=== PATIENT | female | born 1940 | race Caucasian/White ===

== ENCOUNTER 2018-06-04 12:36 | Emergency (ER) | payer MEDICARE ==
--- NOTE | 2018-06-04 12:59 | ED ---
Skin Complaint - HPI Summary HPI Summary: Patient is a 78-year-old female who presents emergency department for evaluation of a wound that occurred just prior to arrival. Patient states she was shaving her legs when she accidentally over a varicose vein to her left lower leg. She states wound was bleeding profusely. She placed a towel and pressure and called 911. Patient is on Coumadin. She states she had her level checked last week it was 2.2. Since in the ER bleeding has stopped. Patient otherwise denies any complaints. Symptoms are mild in severity. No current modifying factors. - History of Current Complaint Chief Complaint: EDExtremityLower Time Seen by Provider: 06/04/18 12:44 Stated Complaint: LEFT LEG INJURY Hx Obtained From: Patient Pain Intensity: 0 - Allergy/Home Medications Allergies/Adverse Reactions: Allergies Allergy/AdvReac Type Severity Reaction Status Date / Time Adhesive Tape Allergy Rash And Verified 04/05/13 12:43 Itching MS Amoxicillin Allergy Rash Verified 04/05/13 12:43 [From Augmentin] MS Clarithromycin Allergy Rash Verified 04/05/13 12:43 [From Biaxin] MS Clavulanic Acid Allergy Rash Verified 04/05/13 12:43 [From Augmentin] ENVIRONMENTAL Allergy SCRATCHY Uncoded 04/05/13 12:43 THROAT PMH/Surg Hx/FS Hx/Imm Hx Previously Healthy: Yes Endocrine/Hematology History: Reports: Hx Thyroid Disease - ondaily meds, Hx Anemia - spleenectomy 1969 Cardiovascular History: Reports: Hx Coronary Artery Disease, Hx Hypertension, Hx 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 1970s SPLEENECTOMY & GALL BLADDER [place]. 1981 LEFT KIDNEY (DONATED TO BROTHER) [place]. 1986 TOTAL HYSTERECTOMY [facility] [place]. 2008 LEFT BREAST CANCER [place]. 2010 OPEN HEART, [facility] [place] Hx Anesthesia Reactions: No Infectious Disease History: No Infectious Disease History: Denies: Traveled Outside the [place] in Last 30 Days - Family History Known Family History: Positive: Non-Contributory - Social History Occupation: Retired Lives: With Family Alcohol Use: None Substance Use Type: Reports: None Smoking Status (MU): Never Smoked Tobacco Review of Systems Positive: Other - wound LLE All Other Systems Reviewed And Are Negative: Yes Physical Exam Triage Information Reviewed: Yes Vital Signs On Initial Exam: Initial Vitals Temp Pulse Resp BP Pulse Ox 97.8 F 61 15 115/84 100 06/04/18 12:41 06/04/18 12:41 06/04/18 12:41 06/04/18 12:41 06/04/18 12:41 Vital Signs Reviewed: Yes Appearance: Positive: Well-Appearing - Pt. lying in bed in NAD. Pleasant. Skin: Positive: Warm, Dry Head/Face: Positive: Normal Head/Face Inspection Eyes: Positive: Normal, EOMI, Conjunctiva Clear Neck: Positive: Supple Musculoskeletal: Positive: Other - Pinpoint puncture wound noted to lateral left LE over a varicose vein. No bleeding at this time. Neurological: Positive: Normal, CN Intact II-III Psychiatric: Positive: Affect/Mood Appropriate Diagnostics - Vital Signs Vital Signs Temp Pulse Resp BP Pulse Ox 06/04/18 12:41 97.8 F 61 15 115/84 100 - Laboratory Lab Statement: Any lab studies that have been ordered have been reviewed, and results considered in the medical decision making process. Course/Dx - Course Course Of Treatment: Pt. presenting for evaluation of cutting leg while shaving. Bleeding as stopped on its own after pressure. Dressing placed. Advised to elevate leg and apply ice. To return to ER if sxs change or worsen. - Diagnoses Provider Diagnoses: Abrasion Discharge - Sign-Out/Discharge Documenting (check all that apply): Patient Departure Patient Received Moderate/Deep Sedation with Procedure: No - Discharge Plan Condition: Improved Disposition: HOME Patient Education Materials: Acute Wound Care (ED) Referrals: Rigoberto Vaughan MD [Primary Care Provider] - Additional Instructions: Follow up with PCP if needed Keep wound clean and dry Leave dressing on until tomorrow Elevate leg and apply cool compress Apply direct pressure and elevate leg if bleeding returns Return to ER if symptoms change or worsen - Billing Disposition and Condition Condition: IMPROVED Disposition: Home
[2018-06-04 13:35] VITALS: BP 101/66
== END 2018-06-04 13:34 | disposition home or self-care (01) ==
LOC: ED 12:36
DX: S80.812A Abrasion, left lower leg, initial encounter (principal); W26.8XXA Contact with other sharp object(s), not elsewhere classified, initial encounter; Y93.E8 Activity, other personal hygiene; Y92.9 Unspecified place or not applicable; E07.9 Disorder of thyroid, unspecified; I25.10 Atherosclerotic heart disease of native coronary artery without angina pectoris; I10 Essential (primary) hypertension; Z79.01 Long term (current) use of anticoagulants; Z95.2 Presence of prosthetic heart valve; Z88.1 Allergy status to other antibiotic agents; Z88.0 Allergy status to penicillin; Z91.048 Other nonmedicinal substance allergy status
CPT/HCPCS: 99282

== ENCOUNTER 2018-11-25 08:10 | Observation (INO) | payer MEDICARE ==
[2018-11-25] MEDS ORDERED: Clindamycin 900 MG/D5W BAG(*) 900 MG/50 ML BAG IVPB ONE (09:00)
[2018-11-25] MEDS ORDERED: Midazolam* 1 MG/ML 5 ML VIAL (5 MG) ONE ×2 (09:25→10:09)
[2018-11-25] MEDS ORDERED: Naloxone* 0.4 MG/ML 1 ML VIAL ONE (09:25)
[2018-11-25] MEDS ORDERED: fentaNYL* 50 MCG/ML 2 ML VIAL (100 MCG VIAL) ONE (09:25)
[2018-11-25] MEDS ORDERED: Flumazenil* 0.1 MG/ML 5 ML MDV ONE (09:25)
[2018-11-25] MEDS ORDERED: Lidocaine 1% INJ* 10 MG/ML 30 ML SDV ONE ×2 (09:25→10:28)
[2018-11-25] MEDS ORDERED: Iohexol 300* (CONTRAST) 10 ML SDV ONE ×3 (09:26→10:37)
[2018-11-25 09:37] LABS: INR 1.27 (0.82-1.09)
[2018-11-25] MEDS ORDERED: Atenolol TAB* 25 MG PO SCH (12:00)
[2018-11-25] MEDS: Potassium Chlor TAB* 20 MEQ TAB.ER PO SCH ×2 (13:44→20:08)
[2018-11-25] MEDS: Acetaminophen TAB* 325 MG PO PRN ×2 (14:37→20:09)
[2018-11-25] MEDS: Clindamycin 300 MG IVPREMIX(* 300 MG/50 ML SDV IV SCH ×2 (14:39→20:11)
[2018-11-25] MEDS: Atenolol TAB* 50 MG PO SCH (19:20)
[2018-11-25] MEDS: Furosemide TAB* 40 MG PO SCH (19:20)
[2018-11-25] MEDS: Diltiazem TAB* 60 MG PO SCH (20:08)
--- NOTE | 2018-11-25 21:16 | OP ---
CC: Dr. Duke * DATE OF OPERATION: 11/25/18 - ROOM #453 DATE OF : 42 SURGEON: Michelle Anna MD. ANESTHESIA: MAC. PRE-OP DIAGNOSIS: Atrial fibrillation with tachybrady syndrome. POST-OP DIAGNOSIS: Atrial fibrillation with tachybrady syndrome. OPERATIVE PROCEDURE: Pacemaker implantation, single chamber. ESTIMATED BLOOD LOSS: 20 cc. DESCRIPTION OF PROCEDURE: The indications, risks, and benefits of the procedure were discussed with the patient in the presence of her family in the office and then again this morning with her son and she was amenable to proceeding. The patient is right handed, and the left subclavian fossa was prepped and draped in the usual sterile fashion. A time-out was called. Following this, the patient received 10 cc of radiopaque dye in the left upper extremity; however, it extravasated into the left lower arm. A new IV was placed. An additional 10 cc of radiopaque dye was injected in the left upper extremity outlining the left axillary and left subclavian vein. Following this, 1% lidocaine was infused in the tissue over the vein and following this, using a 10 blade knife, a 2.5 cm incision was made in the left subclavian fossa, and using Bovie and blunt dissection, it was extended to the level of the pectoralis muscle. Additional lidocaine was infused inferiorly medially and using blunt dissection a pocket was fashioned. Using modified Seldinger technique and under fluoroscopic guidance, the left subclavian vein was cannulated and a guidewire inserted. It had trouble advancing, so we placed the dilator over the guidewire and the guidewire then easily passed down the superior vena cava into the heart, but was more rightward than was typical. We verified that we were in the blood vessel by removing the guidewire and with a syringe removing blood. We then replaced the guidewire, again it was difficult to advance fully and a full introducer was placed over the guidewire. Lead was placed through the introducer into the inferior vena cava. The lead was then advanced into the right ventricle, it took many tries that she has significant tricuspid insufficiency and it took several tries to get the lead in position and actively fix in place securely. Once in place in the mid septum, pacing and sensing thresholds were checked and found to be adequate. The lead was then sutured to the pocket using 0 silk suture, three sutures. Prior to this, there was a lot of back bleeding from the stick site. Once the lead was stitched to the pocket, the pocket was copiously irrigated. The lead was then attached to the generator, the generator was placed into the pocket with Surgicel above and below. The pocket was then closed with three layers of sutures, one layer of interrupted 2-0, one layer of running 2-0, and one layer of 4-0 running, followed by rick and external dressing. FINDINGS: The system is a single-chamber MRI compatible Medtronic system. The device is a Medtronic model W3SR01, serial number [id number]. The lead is a Medtronic model 5076-58, serial number [id number]. R-waves were sensed at 3.9 mV. The ventricular lead impendence was 590 ohms with the RV pacing threshold of 0.7 volts at 0.5 msec. From the pocket, the lead impedance was 570 ohms, R-waves sensed at 4.9 mV and a ventricular pacing threshold of 0.5 volts at 0.4 msec. The patient's total anesthesia is documented separately. At the time of transfer to the floor, the patient was talking and hemodynamically stable. Complications included more than usual bleeding due to back bleeding and extravasation of IV contrast dye into the left forearm. [id number]/[facility] #: [id number] JAMES
[2018-11-26] MEDS: Clindamycin 300 MG IVPREMIX(* 300 MG/50 ML SDV IV SCH ×2 (02:18→09:58)
[2018-11-26] MEDS ORDERED: Levothyroxine TAB* 150 MCG TAB PO SCH (06:00)
[2018-11-26 07:18] LABS: Hematocrit 40 % (35-47); Hemoglobin 13.9 g/dL (12.0-16.0); Mean Corpuscular HGB Conc 35 g/dL (31-36); Mean Corpuscular Hemoglobin 32 pg (27-31); Mean Corpuscular Volume 91 fL (80-97); Mean Platelet Volume 8.2 fL (7.4-10.4); Platelet Count 283 10^3/uL (150-450); Red Blood Count 4.38 10^6 /uL (3.70-4.87); Red Cell Distribution Width 14 % (10-15); White Blood Count 11.4 10^3/uL (3.5-10.8)
[2018-11-26 07:36] LABS: BUN/Creatinine Ratio 21.1 (8-20); Calcium 8.9 mg/dL (8.6-10.3); EGFR African American 89.3 (>60); EGFR Non-African American 73.8 (>60)
[2018-11-26 08:49] LABS: ABS Basophils 0.1 10^3/ul (0-0.2); ABS Eosinophils 0.4 10^3/ul (0-0.6); ABS Lymphocytes 1.6 10^3/ul (1.0-4.8); ABS Neutrophils 7.2 10^3/ul (1.5-7.7); Eosinophil % 3.5 %; Lymphocyte % 14.3 %; Nucleated Red Blood Cells % 0.1
[2018-11-26] MEDS ORDERED: Atenolol TAB* 50 MG PO SCH (09:00)
[2018-11-26] MEDS ORDERED: Doxazosin TAB* 2 MG PO SCH (09:00)
[2018-11-26] MEDS ORDERED: Furosemide TAB* 40 MG PO SCH (09:00)
[2018-11-26] MEDS: Diltiazem TAB* 60 MG PO SCH (09:57)
[2018-11-26] MEDS: Atenolol TAB* 50 MG PO SCH (09:57)
[2018-11-26] MEDS: Potassium Chlor TAB* 20 MEQ TAB.ER PO SCH (09:57)
[2018-11-26] MEDS: Furosemide TAB* 40 MG PO SCH (09:58)
[2018-11-26 12:22] VITALS: BP 124/88
--- NOTE | 2018-11-26 12:59 | DS ---
CC: Dr. Duke; Dr. Rigoberto Vaughan * DISCHARGE SUMMARY: DATE OF ADMISSION: 11/25/18 DATE OF DISCHARGE: 11/26/18 HISTORY OF PRESENT ILLNESS AND HOSPITAL COURSE: Mrs. Medina is a very nice 78- year- old patient of Dr. Duke's with chronic atrial fibrillation. She has had Holter monitor evidence of tachybrady syndrome. The patient was admitted for elective single-chamber pacemaker implantation. The patient underwent a single chamber pacer implantation yesterday, 11/25/18, complicated by some back bleeding and some difficulty with lead positioning due to tricuspid insufficiency. Today, the day of discharge, the patient is clinically healing well and in fact , she said she feels much better than prior to pacemaker implantation. She said she feels calmer, a little more energy, and she says her sons says her color is better. PAST MEDICAL HISTORY: The patient has a past medical history of: 1. Chronic AFib. 2. Hypertension. 3. Obstructive sleep apnea. 4. Obesity. 5. Aortic valve replacement, complicated by Staph bacteremia in 2010. 6. Breast cancer. 7. Congenital spherocytic hemolytic anemia. 8. Hypothyroidism. PAST SURGICAL HISTORY: Includes: 1. Mastectomy. 2. Splenectomy. 3. Appendectomy. 4. Nephrectomy (organ donor for brother). 5. Hysterectomy. 6. Cholecystectomy. 7. . 8. Knee arthroplasty. 9. Aortic valve replacement, tissue. OUTPATIENT MEDICATIONS: Included Coumadin, Cardura 2 mg a day, atenolol 25 mg a day, B12, levothyroxine 50 mcg a day, Lasix 40 mg a day, potassium 60 mEq a day, calcium and vitamin D, and diltiazem 60 mg b.i.d. ALLERGIES: Included ADHESIVE TAPE, AMOXICILLIN, CEFUROXIME, CLARITHROMYCIN, CLAVULANIC ACID, and environmental allergies. PHYSICAL EXAMINATION: On the day of discharge, the patient is 5 feet 5 inches tall, weighs 223 pounds with a BMI of 37. Vitals: Blood pressure 114/76, pulse is 70, respiratory rate 16, temperature 98.1, oxygen saturation 94% on room air. General Appearance: Quite overweight older woman, seated in no acute distress, smiling. Psychologically, pleasant and cooperative. Neurologically, awake, alert, and oriented to person; place; and time. Cranial nerves II through XII intact. Grossly normal sensory and motor function in the the upper and lower extremities. Skin: Warm and dry. Incision to the left subclavian fossa has some mild bleeding. No evidence of infection, hematoma, or ecchymosis. HEENT: Mucous membranes are moist. Neck: Without appreciable increase in JVP. Breath sounds were clear with good effort. No wheezes, rales , or rhonchi. Coronary: S1, S2, regular. Abdomen: Soft, overweight. Lower extremities were warm. FINDINGS: The patient's chest x-ray yesterday and today showed good lead placement in the septum, enlarged cardiac silhouette, and no evidence of pneumothorax. The patient's pacemaker interrogation today confirmed that she has a Medtronic device single chamber programmed in VVI mode, with a low rate of 60 beats a minute. Overnight, she ventricularly paced 38% of the time. R waves are sensed at 6.1 mV. The atrial lead impedance was 513 ohms with a ventricular pacing threshold of 0.5 volts at 0.4 msec. DISCHARGE MEDICATIONS: Include: 1. Atenolol increased to 50 mg a day from 25. 2. Tylenol p.r.n. 3. Diltiazem 60 mg b.i.d. 4. Doxazosin 2 mg a day. 5. Lasix 40 mg a day. 6. Levothyroxine 150 mcg a day. 7. Potassium chloride 20 mEq t.i.d. 8. Calcium carbonate 600/200 vitamin D 1 tab daily. 9. Clindamycin 300 mg t.i.d. oral. 10. Cyanocobalamin (B12) 500 mg a day. 11. Coumadin to resume. The patient will obtain a wound check next week. [id number]/[facility] #: [id number] [facility]
== END 2018-11-26 13:25 | disposition home or self-care (01) ==
LOC: CHICATH 08:10 → MEDTELE 11:49
PROVIDERS: ADMIT Specialist; ATTEND Specialist
DX: I48.2 Chronic atrial fibrillation (principal); I49.5 Sick sinus syndrome; I10 Essential (primary) hypertension; G47.33 Obstructive sleep apnea (adult) (pediatric); E66.9 Obesity, unspecified; Z95.4 Presence of other heart-valve replacement; Z85.3 Personal history of malignant neoplasm of breast; D58.0 Hereditary spherocytosis; Z90.12 Acquired absence of left breast and nipple; Z79.01 Long term (current) use of anticoagulants; Z79.899 Other long term (current) drug therapy; Z88.0 Allergy status to penicillin; R94.31 Abnormal electrocardiogram [ECG] [EKG]; Z87.891 Personal history of nicotine dependence
CPT/HCPCS: 33207; 36415; 71045; 71046; 80048; 85025; 85610; 93005; 96365; 96366; 99156; 99157; A9270-GY; C1786; C1892; C1898; G0378; J2250; J2310; J3010

== ENCOUNTER 2019-05-12 10:27 | Emergency (ER) | payer MEDICARE ==
--- OUTSIDE RECORDS SUMMARY | 2019-05-12 10:33 | XMS REPORT | Continuity of Care Document ---
:1940 External Reference #:[id number] Author Name Helena Duke M.D. (transmitted by agent of provider Shima Carlos) Address [address] [place] [address] Care Team Providers Name Role Phone Rigoberto Vaughan MD - Internal Medicine Care Team Information Touring Production Manager Helena Duke MD [facility] - Care Team Information Touring Production Manager Cardiovascular Disease Problems Active Problems Provider Date Mitral valve disorder Helena Duke M.D. Onset: 02/12/2011 Aortic valve disorder Helena Duke M.D. Onset: 02/12/2011 Electrocardiogram abnormal Helena Duke M.D. Onset: 02/12/2011 Atrial fibrillation Helena Duke M.D. Onset: 02/12/2011 Dyspnea Helena Duke M.D. Onset: 02/12/2011 Edema Helena Duke M.D. Onset: 02/12/2011 Benign essential hypertension Helena Duke M.D. Onset: 02/12/2011 Coronary arteriosclerosis Helena Duke M.D. Onset: 02/12/2013 Preoperative cardiovascular examination Helena Duke M.D. Onset: Essential hypertension [facility] Schedule Onset: 09/22/2013 Cardiac pacemaker in situ Michelle Anna M.D. Onset: 12/18/2018 Chronic atrial fibrillation Helena Duke M.D. Onset: 04/14/2015 Social History Type Date Description Comments Sex Unknown Tobacco Use Start: Unknown End: Unknown Former Cigarette Smoker Smoking Status Reviewed: 03/25/19 Former Cigarette Smoker ETOH Use Denies alcohol use Tobacco Use Start: Unknown no smoking in > 20years Recreational Drug Use Denies Drug Use Exercise Type/Frequency Exercises sporadically Allergies, Adverse Reactions, Alerts Active Allergies Reaction Severity Comments Date Augmentin rash 02/02/2009 Biaxin rash 02/02/2009 Ceftin rash rash 01/14/2018 Amoxicillin pt does not know reaction 12/02/2018 Clarithromycin pt does not know reaction 12/02/2018 Clindamycin rash , heart burn 12/02/2018 Medications Active Medications SIG Qnty Indications Ordering Date Provider Diltiazem HCL 1 tablet by 180tabs Helena SDelores 06/02/2018 60mg mouth twice Siddharth Duke Tablets daily Klor-Con M20 take 1 tablet 270tabs Helena S. 11/10/2012 20Meq three times Siddharth Duke Tablets ER daily Calcium-D 1 capsule by 60caps Helena S. 02/02/2009 [id number] mouth twice Siddharth Duke Capsules daily Lasix take 1 tablet 90tabs Helena S. 02/02/2009 40mg Tablets every day Siddharth Duke Levothyroxine Sodium 1 po qd 90tabs Unknown 150mcg Tablets Vitamin B12 1 by mouth every Unknown 500mg Tablets day Warfarin Sodium as Unknown 2mg. 4 mg directed,managed Tablets by Emilee Doxazosin Mesylate 1 by mouth every Unknown 2mg day Tablets Atenolol 1 by mouth twice Rigoberto Vaughan 25mg Tablets daily Immunizations Description No Information Available Vital Signs Date Vital Result Comment 03/25/2019 1:29pm Height 65 inches 5'5" Weight 225.00 lb with shoes BP Systolic Sitting 120 mmHg Rue lg cuff BP Diastolic Sitting 82 mmHg Rue lg cuff BP Systolic Standing 122 mmHg Rue lg cuff BP Diastolic Standing 76 mmHg Rue lg cuff BMI (Body Mass Index) 37.4 kg/m2 12/18/2018 1:43pm Height 65 inches 5'5" Weight 219.00 lb Heart Rate 62 /min BP Systolic Sitting 130 mmHg Rue BP Diastolic Sitting 82 mmHg Rue BP Systolic Standing 132 mmHg Rue BP Diastolic Standing 80 mmHg Rue BMI (Body Mass Index) 36.4 kg/m2 Ejection Fraction 55-60% ECHO 06/05/2017 Results Test Acquired Date Facility Test Result H/L Range Note Laboratory test 12/08/2018 [facility] CRP High 10.81 mg/L High <2.[address] [place] [address] [phone] Erythrocyte Sed Rate 20 mm/Hr Normal 0-29 Laboratory test 12/04/2018 [facility] CRP High 18.16 mg/L High <2.[address] [place] [address] [phone] Laboratory test 12/01/2018 [facility] CRP High 41.36 mg/L High <2.[address] [place] [address] [phone] Erythrocyte Sed Rate 32 mm/Hr High 0-29 Inr/Protime 11/25/2018 [facility] Inr 1.27 High 0.82-1.[address] [place], [place] [id number] [phone] Inr/Protime 11/20/2018 [facility] Inr 2.92 High 0.82-1.[address] [place] [address] [phone] Laboratory test 11/20/2018 [facility] Partial 56.7 High 26.0- 38.[address] [place] [address] Time PTT [phone] CBC Auto Diff 11/20/2018 [facility] White Blood 10.3 Normal 3.5-10.[address] Count 10^3/[place] [address] [phone] Red Blood Count 4.53 10^6/uL Normal 3.70-4.87 Hemoglobin 14.2 g/dL Normal 12.0-16.0 Hematocrit 41 % Normal 35-47 Mean Corpuscular Volume 91 fL Normal 80-97 Mean Corpuscular Hemoglobin 31 pg Normal 27-31 Mean Corpuscular HGB Conc 35 g/dL Normal 31-36 Red Cell Distribution Width 14 % Normal 10-15 Platelet Count 306 10^3/uL Normal 150-450 Mean Platelet Volume 8.5 fL Normal 7.4-10.4 Abs Neutrophils 5.9 10^3/uL Normal 1.5-7.7 Abs Lymphocytes 2.2 10^3/uL Normal 1.0-4.8 Abs Monocytes 1.6 10^3/uL High 0-0.8 Abs Eosinophils 0.5 10^3/uL Normal 0-0.6 Abs Basophils 0.1 10^3/uL Normal 0-0.2 Abs Nucleated RBC 0.0 10^3/uL Granulocyte % 57.7 % Lymphocyte % 21.4 % Monocyte % 15.1 % Eosinophil % 4.7 % Basophil % 1.1 % Nucleated Red Blood Cells % 0.1 Basic Metabolic 11/20/2018 [facility] Sodium 143 mmol/L Normal 135-145 Panel [address] [place] [address] [phone] Potassium 4.5 mmol/L Normal 3.5-5.0 Chloride 106 mmol/L Normal 101-111 Co2 Carbon Dioxide 29 mmol/L Normal 22-32 Anion Gap 8 mmol/L Normal 2-11 Glucose 105 mg/dL High 70-100 Blood Urea Nitrogen 14 mg/dL Normal 6-24 Creatinine 0.77 mg/dL Normal 0.51-0.95 BUN/Creatinine Ratio 18.2 Normal 8-20 Calcium 9.4 mg/dL Normal 8.6-10.3 Egfr Non- 72.7 >60 Egfr 88.0 >60 3 Cath Panel 11/19/2018 [facility] Partial Thrombo Time PTT < pending> [address] [place] [address] [phone] 1 Standard intensity warfarin therapeutic range: 2.0-3.0 High intensity warfarin therapeutic range: 2.5-3.5 2 Standard intensity warfarin therapeutic range: 2.0-3.0 High intensity warfarin therapeutic range: 2.5-3.5 3 Because ethnic data is not always readily available, this report includes an eGFR for both -Americans and non- Americans. The National Kidney Disease Education Program (NKDEP) does not endorse the use of the MDRD equation for patients that are not between the ages of 18 and 70, are , have extremes of body size, muscle mass, or nutritional status, or are non- or non-. According to the National Kidney Foundation, irrespective of diagnosis, the stage of the disease is based on the level of kidney function: Stage Description GFR(mL/min/1.73 m(2)) 1 Kidney damage with normal or decreased GFR 90 2 Kidney damage with mild decrease in GFR 60-89 3 Moderate decrease in GFR 30-59 4 Severe decrease in GFR 15-29 5 Kidney failure <15 (or dialysis) Procedures Date Code Description Status 03/25/2019 31788 Pace Maker Eval W/Iterative Adjustment Single Lead Completed 12/18/2018 59607 Pace Maker Eval W/Iterative Adjustment Single Lead Completed 12/18/2018 65703 Pace Maker Eval W/Iterative Adjustment Single Lead Completed 11/26/2018 56569 Pace Maker Eval W/Iterative Adjustment Single Lead Completed 11/25/2018 91794 Perm Pacemaker Ventricular Completed 11/12/2018 20005 Holter Monitor Review (24 hr)dr review & interp only Completed 11/11/2018 76413 ECG Monitor/Recording W/Visual Superimposition Scanning Completed 11/11/2018 56128 ECG Monitor/Recording W/Visual Superimposition Scanning Completed 11/10/2018 85829 EKG Tracing & Interpretation Completed Medical Devices Description No Information Available Encounters Type Date Location Provider Dx Diagnosis Office Visit 12/18/2018 [facility] Michelle Anna, Z95.0 Presence of 2:20p Of [employer] M.D. cardiac pacemaker I48.2 Chronic atrial fibrillation R00.1 Bradycardia, unspecified R21 Rash and other nonspecific skin eruption Office Visit 12/08/2018 12:00p [facility] Elin Birch I49.5 Sick sinus Of [employer] CHIEF ENGINEER syndrome I48.2 Chronic atrial fibrillation I10 Essential (primary) hypertension R21 Rash and other nonspecific skin eruption Office Visit 12/04/2018 11:30a [facility] Elin Birch I49.5 Sick sinus Of [employer] CHIEF ENGINEER syndrome I48.2 Chronic atrial fibrillation I10 Essential (primary) hypertension R21 Rash and other nonspecific skin eruption Office Visit 12/01/2018 2:30p [facility] Elin Birch I49.5 Sick sinus CHIEF ENGINEER syndrome I48.2 Chronic atrial fibrillation I10 Essential (primary) hypertension R22.32 Localized swelling, mass and lump, left upper limb Z95.0 Presence of cardiac pacemaker Office Visit 11/19/2018 3:00p [facility] Michelle Anna, R00.1 Bradycardia, Of [employer] M.D. unspecified I48.2 Chronic atrial fibrillation Office Visit 11/10/2018 [facility] I48.2 Chronic atrial 9:00a Cardiology Siddharth Duke fibrillation I10 Essential (primary) hypertension E66.9 Obesity, unspecified Z95.2 Presence of prosthetic heart valve I35.0 Nonrheumatic aortic (valve) stenosis I34.0 Nonrheumatic mitral (valve) insufficiency R00.0 Tachycardia, unspecified G47.33 Obstructive sleep apnea (adult) (pediatric) Assessments Date Code Description Provider 03/25/2019 Z95.0 Presence of cardiac pacemaker Helena Duke M.D. 03/25/2019 Z95.0 Presence of cardiac pacemaker Ica Pacer Schedule 03/25/2019 I49.5 Sick sinus syndrome Helena Duke M.D. 03/25/2019 I49.5 Sick sinus syndrome Ica Pacer Schedule 03/25/2019 I48.21 Permanent atrial fibrillation Helena Duke M.D. 03/25/2019 I10 Essential (primary) hypertension Helena Duke M.D. 03/25/2019 Z95.2 Presence of prosthetic heart valve Helena Duke M.D. 03/25/2019 I35.0 Nonrheumatic aortic (valve) stenosis Helena Duke M.D. 03/25/2019 I34.0 Nonrheumatic mitral (valve) Helena Duke M.D. insufficiency 03/25/2019 G47.33 Obstructive sleep apnea (adult) Helena Duke M.D. (pediatric) 12/18/2018 Z95.0 Presence of cardiac pacemaker Michelle Anna M.D. 12/18/2018 I49.5 Sick sinus syndrome Ica Pacer Schedule 12/18/2018 Z95.0 Presence of cardiac pacemaker Michelle Anna M.D. 12/18/2018 I48.2 Chronic atrial fibrillation Michelle Anna M.D. 12/18/2018 Z95.0 Presence of cardiac pacemaker Ica Pacer Schedule 12/18/2018 R00.1 Bradycardia, unspecified Michelle Anna M.D. 12/18/2018 R21 Rash and other nonspecific skin Michelle Anna M.D. eruption 12/08/2018 I49.5 Sick sinus syndrome Elin Thuman, CHIEF ENGINEER 12/08/2018 I48.2 Chronic atrial fibrillation Elin Thuman, CHIEF ENGINEER 12/08/2018 I10 Essential (primary) hypertension Elin Thuman, CHIEF ENGINEER 12/08/2018 R21 Rash and other nonspecific skin Elin Thuman, CHIEF ENGINEER eruption 12/04/2018 I49.5 Sick sinus syndrome Elin Thuman, CHIEF ENGINEER 12/04/2018 I48.2 Chronic atrial fibrillation Elin Thuman, CHIEF ENGINEER 12/04/2018 I10 Essential (primary) hypertension Elin Thuman, CHIEF ENGINEER 12/04/2018 R21 Rash and other nonspecific skin Elin Thuman, CHIEF ENGINEER eruption 12/01/2018 I49.5 Sick sinus syndrome Eiln Thuman, CHIEF ENGINEER 12/01/2018 I48.2 Chronic atrial fibrillation Elin Thuman, CHIEF ENGINEER 12/01/2018 I10 Essential (primary) hypertension Elin Thuman, CHIEF ENGINEER 12/01/2018 R22.32 Localized swelling, mass and lump, left Elin Thuman, CHIEF ENGINEER upper limb 12/01/2018 Z95.0 Presence of cardiac pacemaker Elin Thuman, CHIEF ENGINEER 11/26/2018 Z95.0 Presence of cardiac pacemaker Michelle Anna M.D. 11/25/2018 I49.5 Sick sinus syndrome Michelle Anna M.D. 11/19/2018 R00.1 Bradycardia, unspecified Michelle Anna M.D. 11/19/2018 I48.2 Chronic atrial fibrillation Michelle Anna M.D. 11/12/2018 R00.0 Tachycardia, unspecified Helena Duke M.D. 11/12/2018 R00.1 Bradycardia, unspecified Helena Duke M.D. 11/12/2018 I48.91 Unspecified atrial fibrillation Charlie GrijalvaD. 11/11/2018 R00.0 Tachycardia, unspecified Helena Duke M.D. 11/11/2018 R00.0 Tachycardia, unspecified Nurse Visit 11/11/2018 R00.1 Bradycardia, unspecified Helena Duke M.D. 11/11/2018 R00.1 Bradycardia, unspecified Nurse Visit 11/11/2018 I48.91 Unspecified atrial fibrillation Helena Duke M.D. 11/11/2018 I48.91 Unspecified atrial fibrillation Nurse Visit 11/10/2018 I48.2 Chronic atrial fibrillation Helena Duke M.D. 11/10/2018 I10 Essential (primary) hypertension Helena Duke M.D. 11/10/2018 E66.9 Obesity, unspecified Helena Duke M.D. 11/10/2018 Z95.2 Presence of prosthetic heart valve Helena Duke M.D. 11/10/2018 I35.0 Nonrheumatic aortic (valve) stenosis Helena Duke M.D. 11/10/2018 I34.0 Nonrheumatic mitral (valve) Helena Duke M.D. insufficiency 11/10/2018 R00.0 Tachycardia, unspecified Helena Duke M.D. 11/10/2018 G47.33 Obstructive sleep apnea (adult) Helena Duke M.D. (pediatric) Plan of Treatment Future Appointment(s):04/07/2019 11:00 am - [facility]03/25/2019 - Helena Duke M.D.Z95.0 Presence of cardiac ksemgtpwmW04.5 Sick sinus rvkcvkivH82.21 Permanent atrial fibrillationFollow up:10 months ovI10 Essential (primary) mqkxkgrshuggO82.2 Presence of prosthetic heart valveNew Orders:Echocardiogram, Ordered: I35.0 Nonrheumatic aortic (valve) mxkuzmwaA95.0 Nonrheumatic mitral (valve) oxwhdgowxdtslP83.33 Obstructive sleep apnea (adult) (pediatric) Functional Status Description No Information Available Mental Status Description No Information Available Referrals Description No Information Available
[2019-05-12 10:48] VITALS: BP 141/51
--- NOTE | 2019-05-12 11:57 | UC ---
Respiratory Complaint HPI - HPI Summary HPI Summary: 79-year-old female who has had cough and cold symptoms for one week. She now has some wheezing and she is concerned she may have pneumonia. She denies any fever or chills. Her son, with whom she lives, had similar symptoms one week ago. - History of Current Complaint Chief Complaint: UCGeneralIllness Stated Complaint: CHEST CONGESTSION, COUGH Time Seen by Provider: 05/12/19 11:52 Hx Obtained From: Patient ?: No Onset/Duration: Gradual Onset Timing: Intermittent Episodes Severity Initially: Mild Severity Currently: Mild Pain Intensity: 0 Character: Cough: Nonproductive Aggravating Factors: Deep Breaths Alleviating Factors: Nothing Associated Signs And Symptoms: Positive: Wheezing, URI, Nasal Congestion - Allergies/Home Medications Allergies/Adverse Reactions: Allergies Allergy/AdvReac Type Severity Reaction Status Date / Time Adhesive Tape Allergy Rash And Verified 05/12/19 10:48 Itching amoxicillin [From Augmentin] Allergy Rash Verified 05/12/19 10:48 cefuroxime [From Ceftin] Allergy Unknown Verified 05/12/19 10:48 Reaction Details clarithromycin [From Biaxin] Allergy Rash Verified 05/12/19 10:48 clavulanic acid Allergy Rash Verified 05/12/19 10:48 [From Augmentin] ENVIRONMENTAL Allergy SCRATCHY Uncoded 05/12/19 10:48 THROAT PMH/Surg Hx/FS Hx/Imm Hx Previously Healthy: Yes Cardiovascular History: Atrial Fibrillation - Surgical History Surgical History: Yes Surgery Procedure, Year, and Place: 1967 [place]. 1970s SPLEENECTOMY & GALL BLADDER [place]. [place] LEFT KIDNEY (DONATED TO BROTHER) [place]. 1986 T[place] [facility] [place] LEFT BREAST CANCER [place]. 2010 OPEN HEART, [place] - Family History Known Family History: Positive: Non-Contributory - Social History Occupation: Retired Alcohol Use: None Substance Use Type: None Smoking Status (MU): Never Smoked Tobacco - Immunization History Most Recent Influenza Vaccination: fall 2017 Most Recent Tetanus Shot: ? Most Recent Pneumonia Vaccination: 2018 Review of Systems All Other Systems Reviewed And Are Negative: Yes ENT: Positive: Nasal Discharge Respiratory: Positive: Cough - Nonproductive cough, wheezing. Is Patient Immunocompromised?: No Physical Exam Triage Information Reviewed: Yes Appearance: Well-Appearing, No Pain Distress, Well-Nourished Vital Signs: Initial Vital Signs Temp 98.0 F 05/12/19 10:44 Pulse 100 05/12/19 10:44 Resp 18 05/12/19 10:44 BP 141/51 05/12/19 10:44 Pulse Ox 94 05/12/19 10:44 Vital Signs Reviewed: Yes Eyes: Positive: Conjunctiva Clear ENT: Positive: Hearing grossly normal, Pharynx normal, TMs normal, Uvula midline Neck: Positive: Supple, Nontender, No Lymphadenopathy Respiratory: Positive: No respiratory distress, No accessory muscle use, Rhonchi , Wheezing - Scattered rhonchi and mild wheezing, moist cough. Cardiovascular: Positive: No Murmur, Pulses Normal, Brisk Capillary Refill, Other: - Irregular rhythm (history of atrial fib) Musculoskeletal Exam: Normal Neurological Exam: Normal Psychological Exam: Normal Skin Exam: Normal Respiratory Course/Dx - Course Course Of Treatment: Chest x-ray:REPORT: Median sternotomy wires, prosthetic mitral and aortic valves , RIGHT ventricular pacemaker lead. Cardiomegaly. Mild prominence of the central pulmonary vasculature and mild cephalization. Mild prominence of the interstitial markings. Relative lucency of the LEFT lung compared with the RIGHT reflects probable previous LEFT mastectomy. Negative for pleural effusions or pneumothorax. IMPRESSION: #. Probable mild pulmonary vascular congestion and interstitial edema. The patient has been comfortable here. At this point time I feel this is bronchitis and needs to be treated with prednisone however I don't feel she needs an antibiotic right now. Definite follow-up with her primary care provider if no improvement by Friday but if she has worsening symptoms coming into the weekend then she is to go to the emergency room for further treatment - Differential Dx/Diagnosis Provider Diagnosis: Bronchitis Discharge ED - Sign-Out/Discharge Documenting (check all that apply): Patient Departure All imaging exams completed and their final reports reviewed: Yes - Discharge Plan Condition: Good Disposition: HOME Prescriptions: predniSONE 10 mg TAB [Deltasone 10 MG TAB*] 10 mg PO DAILY 12 Days #32 tab Patient Education Materials: Acute Bronchitis (ED) Referrals: Rigoberto Vaughan MD [Primary Care Provider] - Additional Instructions: Increase fluids, take the prednisone with food. Definite follow-up with your primary care provider if no improvement in 4 or 5 days. If, coming into the weekend, you develop worsening symptoms, shortness of breath, chest pain then you're to go to the emergency room for further treatment. - Billing Disposition and Condition Condition: GOOD Disposition: Home
== END 2019-05-12 13:28 | disposition home or self-care (01) ==
LOC: UCEAST 10:27
DX: J40 Bronchitis, not specified as acute or chronic (principal); J98.4 Other disorders of lung; I48.91 Unspecified atrial fibrillation; Z88.0 Allergy status to penicillin; Z91.09 Other allergy status, other than to drugs and biological substances; Z88.1 Allergy status to other antibiotic agents; Z85.3 Personal history of malignant neoplasm of breast
CPT/HCPCS: 71046; 99212; G0463

== ENCOUNTER 2024-03-21 15:45 | Inpatient (IN) ==
[2024-03-21 16:25] LABS: Hematocrit 47.1 % (35-45); Hemoglobin 16.2 g/dL (11.5-14.3); Mean Corpuscular Hemoglobin 30.8 pg (27-33); Mean Corpuscular Hgb Conc 34.3 g/dL (31-36); Mean Corpuscular Volume 89.7 fL (80-97); Mean Platelet Volume 8.1 fL (7.5-11.2); Platelet Count 386 10^3/uL (150-450); Red Blood Count 5.25 10^6/uL (3.63-4.92); Red Cell Distribution Width 14.1 % (12-17); White Blood Count 13.7 10^3/uL (3.8-11.8)
[2024-03-21 16:36] LABS: ABS Basophils 0.1 10^3/uL (0.0-0.1); ABS Eosinophils 0.4 10^3/uL (0.0-0.5); ABS Lymphocytes 2.8 10^3/uL (1.0-4.8); ABS Monocytes 2.2 10^3/uL (0.0-0.9); ABS Neutrophils 8.2 10^3/uL (1.5-7.6); ABS Nucleated RBC 0.07 10^3/ul; Activated Partial Thrombo Time 44.2 seconds (26.0-38.0); INR 1.79 (0.85-1.14); Lymphocyte % 20.5 %; Nucleated Red Blood Cells % 0.5 %/100WBC (0.0-0.8)
[2024-03-21 17:08] LABS: Albumin 3.9 g/dL (3.2-5.2); Albumin/Globulin Ratio 1.1 (1-3); Calcium 9.6 mg/dL (8.6-10.3); Creatinine, Serum 0.89 mg/dL (0.51-0.95); Globulin 3.7 g/dL (2-4); Potassium 4.2 mmol/L (3.5-5.0); Total Bilirubin 1.6 mg/dL (0.2-1.0); Total Protein 7.6 g/dL (6.4-8.9); eGFR CKD-EPI 64.7 (>60)
[2024-03-21 20:19] LABS: High Sensitivity Troponin 1 Hr 30 pg/mL (<15)
[2024-03-21 21:06] LABS: Magnesium 1.6 mg/dL (1.9-2.7)
[2024-03-21 21:21] LABS: TSH Ultra Thyroid Stim Horm 0.02 mcIU/mL (0.34-5.60)
[2024-03-21] MEDS: Magnesium Sulfate 2 gm BAG 2 GM/50 ML BAG IVPB ONE (21:34)
[2024-03-21] MEDS ORDERED: NS 0.9% 500 ml BAG 500 ML IV SCH (22:00)
[2024-03-21] MEDS: NS 0.9% 500 ml BAG 500 ML IV SCH (22:21)
[2024-03-22] MEDS ORDERED: Sulfur Hexaflouride MICROSPHR 25 MG VIAL IV PRN (02:44)
[2024-03-22 05:28] LABS: Urine Appearance Clear; Urine Bilirubin Negative (Negative); Urine Blood Negative (Negative); Urine Color Light-Yellow; Urine Glucose Negative (Negative); Urine Ketones Negative (Negative); Urine Nitrite Negative (Negative); Urine Protein Negative (Negative); Urine Specific Gravity 1.005 (1.002-1.030); Urine Urobilinogen Negative (Negative); Urine pH 5.5 (5.0-8.0)
[2024-03-22 06:17] LABS: Hematocrit 40.6 % (35-45); Hemoglobin 13.8 g/dL (11.5-14.3); Mean Corpuscular Hemoglobin 30.8 pg (27-33); Mean Corpuscular Hgb Conc 33.9 g/dL (31-36); Mean Corpuscular Volume 90.7 fL (80-97); Mean Platelet Volume 7.9 fL (7.5-11.2); Platelet Count 297 10^3/uL (150-450); Red Blood Count 4.47 10^6/uL (3.63-4.92)
[2024-03-22 06:55] LABS: Calcium 8.6 mg/dL (8.6-10.3); Creatinine, Serum 1.16 mg/dL (0.51-0.95); Magnesium 1.9 mg/dL (1.9-2.7); Potassium 4.4 mmol/L (3.5-5.0); eGFR CKD-EPI 47.1 (>60)
[2024-03-22 07:16] LABS: ABS Basophils 0.2 10^3/uL (0.0-0.1); ABS Eosinophils 0.5 10^3/uL (0.0-0.5); ABS Lymphocytes 3.2 10^3/uL (1.0-4.8); ABS Monocytes 3.6 10^3/uL (0.0-0.9); ABS Neutrophils 7.5 10^3/uL (1.5-7.6); ABS Nucleated RBC 0.03 10^3/ul; Eosinophil % 3.2 %; Lymphocyte % 21.3 %; Nucleated Red Blood Cells % 0.2 %/100WBC (0.0-0.8)
[2024-03-23 08:42] LABS: Hematocrit 41.5 % (35-45); Hemoglobin 14.2 g/dL (11.5-14.3); Mean Corpuscular Hemoglobin 31.1 pg (27-33); Mean Corpuscular Hgb Conc 34.3 g/dL (31-36); Mean Corpuscular Volume 90.9 fL (80-97); Platelet Count 291 10^3/uL (150-450); Red Blood Count 4.56 10^6/uL (3.63-4.92); Red Cell Distribution Width 13.9 % (12-17); White Blood Count 10.5 10^3/uL (3.8-11.8)
[2024-03-23 08:50] LABS: ABS Basophils 0.1 10^3/uL (0.0-0.1); ABS Eosinophils 0.7 10^3/uL (0.0-0.5); ABS Lymphocytes 2.6 10^3/uL (1.0-4.8); ABS Monocytes 2.5 10^3/uL (0.0-0.9); ABS Neutrophils 4.6 10^3/uL (1.5-7.6); ABS Nucleated RBC 0.04 10^3/ul; Eosinophil % 6.8 %; Lymphocyte % 25.1 %; Nucleated Red Blood Cells % 0.4 %/100WBC (0.0-0.8)
[2024-03-23 09:24] LABS: Calcium 8.8 mg/dL (8.6-10.3); Creatinine, Serum 0.92 mg/dL (0.51-0.95); Magnesium 1.9 mg/dL (1.9-2.7); Potassium 3.9 mmol/L (3.5-5.0); eGFR CKD-EPI 62.2 (>60)
[2024-03-24] MEDS: Ondansetron ODT 4 mg TAB 4 MG TAB SL PRN (14:34)
[2024-03-25 07:13] LABS: Calcium 8.4 mg/dL (8.6-10.3); Creatinine, Serum 0.93 mg/dL (0.51-0.95); Potassium 4.1 mmol/L (3.5-5.0); eGFR CKD-EPI 61.4 (>60)
[2024-03-25] MEDS ORDERED: Senna TAB 8.6 mg TAB PO PRN (08:16)
[2024-03-25] MEDS ORDERED: Polyethylene Glycol 3350 17 GM PACKET PO PRN (08:16)
[2024-03-25] MEDS: Magnesium Hydroxide LIQ 30 ML UDC PO PRN (09:07)
[2024-03-25 10:28] VITALS: BP 91/60
== END 2024-03-25 12:03 | disposition home health service (06) | DRG 310 ==
LOC: EDHOLD 15:45 → ED 15:45 → SUATTDRO 03-22 12:43 → MEDTELE 03-22 15:00
PROVIDERS: ADMIT Internal Medicine; ATTEND Student in an Organized Health Care Education/Training Program

== ENCOUNTER 2024-03-28 16:07 | Inpatient (IN) ==
[2024-03-28 17:13] LABS: Hematocrit 42.7 % (35-45); Hemoglobin 14.7 g/dL (11.5-14.3); Mean Corpuscular Hemoglobin 30.6 pg (27-33); Mean Corpuscular Hgb Conc 34.5 g/dL (31-36); Mean Corpuscular Volume 88.8 fL (80-97); Platelet Count 372 10^3/uL (150-450); Red Blood Count 4.81 10^6/uL (3.63-4.92); Red Cell Distribution Width 13.8 % (12-17); White Blood Count 11.8 10^3/uL (3.8-11.8)
[2024-03-28 17:17] LABS: ABS Basophils 0.1 10^3/uL (0.0-0.1); ABS Eosinophils 0.7 10^3/uL (0.0-0.5); ABS Lymphocytes 2.2 10^3/uL (1.0-4.8); ABS Neutrophils 5.7 10^3/uL (1.5-7.6); ABS Nucleated RBC 0.01 10^3/ul; Eosinophil % 5.6 %; Nucleated Red Blood Cells % 0.1 %/100WBC (0.0-0.8)
[2024-03-28 17:27] LABS: INR 2.17 (0.85-1.14)
[2024-03-28 17:54] LABS: Albumin 3.3 g/dL (3.2-5.2); Albumin/Globulin Ratio 1.1 (1-3); Calcium 9.5 mg/dL (8.6-10.3); Creatinine, Serum 0.87 mg/dL (0.51-0.95); Globulin 2.9 g/dL (2-4); Potassium 4.6 mmol/L (3.5-5.0); Total Bilirubin 1.1 mg/dL (0.2-1.0); Total Protein 6.2 g/dL (6.4-8.9); eGFR CKD-EPI 66.5 (>60)
[2024-03-28 18:11] LABS: TSH Ultra Thyroid Stim Horm 0.02 mcIU/mL (0.34-5.60)
[2024-03-28 18:44] LABS: Urine Appearance Turbid; Urine Bilirubin Negative (Negative); Urine Blood Negative (Negative); Urine Color Light-Yellow; Urine Glucose Negative (Negative); Urine Ketones Negative (Negative); Urine Nitrite Negative (Negative); Urine Protein Negative (Negative); Urine Specific Gravity 1.004 (1.002-1.030); Urine Urobilinogen Negative (Negative); Urine pH 5.5 (5.0-8.0)
[2024-03-28 18:45] LABS: Urine Bacteria 1+ /HPF (Absent); Urine Red Blood Cell 3+(>10/hpf) /HPF (0-Trace); Urine Squamous Epithelial Cell Present /HPF (Absent); Urine White Blood Cell 3+(>20/hpf) /HPF (0-Trace)
[2024-03-28 19:09] LABS: High Sensitivity Troponin 1 Hr 10 pg/mL (<15)
[2024-03-28] MEDS: Iohexol 350 (CONTRAST) 500 ML MDV IV ONE (19:48)
[2024-03-29] MEDS: cefTRIAXone 1 gm/50 mL D5W 1 GM/50 ML BAG IV ONE ×2 (00:21→11:27)
[2024-03-29] MEDS: NS 0.9% 500 ml BAG 500 ML IV ONE (04:07)
[2024-03-29] MEDS: Lactated Ringers 1000 ml BAG 1,000 ML IV ONE (07:21)
[2024-03-29] MEDS: Digoxin IV 0.5 MG/2 ML AMP (0.25 MG/ML) IV SLOW PU ONE (07:36)
[2024-03-29] MEDS ORDERED: Ondansetron ODT 4 mg TAB 4 MG TAB PO PRN (11:11)
[2024-03-29] MEDS: Acetaminophen IV 1 GM/100ML 1,000 MG/100 ML BAG IV ONE (11:31)
[2024-03-29 12:28] LABS: Free T4 1.29 ng/dL (0.61-1.12)
[2024-03-29 15:41] LABS: Calcium 8.7 mg/dL (8.6-10.3); Potassium 4.9 mmol/L (3.5-5.0); eGFR CKD-EPI 56.2 (>60)
[2024-03-29 16:09] LABS: Urine Osmo < 100 mOsm/kg (150-1150)
[2024-03-29] MEDS ORDERED: Senna TAB 8.6 mg TAB PO PRN (19:07)
[2024-03-30] MEDS: Metoprolol Tartrate 5 mg VIAL 5 ml VIAL (1 mg/ml) IV ONE ×2 (02:27→05:00)
[2024-03-30] MEDS: Magnesium Sulfate 2 gm BAG 2 GM/50 ML BAG IVPB ONE (03:16)
[2024-03-30 04:12] LABS: Hematocrit 41.4 % (35-45); Hemoglobin 14.3 g/dL (11.5-14.3); Mean Corpuscular Hemoglobin 31.2 pg (27-33); Mean Corpuscular Hgb Conc 34.5 g/dL (31-36); Mean Corpuscular Volume 90.5 fL (80-97); Mean Platelet Volume 7.8 fL (7.5-11.2); Platelet Count 352 10^3/uL (150-450); Red Blood Count 4.58 10^6/uL (3.63-4.92); Red Cell Distribution Width 14.3 % (12-17)
[2024-03-30] MEDS: Acetaminophen IV 1 GM/100ML 1,000 MG/100 ML BAG IV ONE (04:16)
[2024-03-30 04:36] LABS: ABS Eosinophils 0.9 10^3/uL (0.0-0.5); ABS Lymphocytes 0.8 10^3/uL (1.0-4.8); ABS Monocytes 2.4 10^3/uL (0.0-0.9); ABS Neutrophils 7.8 10^3/uL (1.5-7.6); ABS Nucleated RBC 0.01 10^3/ul; Eosinophil % 7.4 %; Nucleated Red Blood Cells % 0.1 %/100WBC (0.0-0.8)
[2024-03-30 04:48] LABS: Anion Gap 7 mmol/L (2-16); Blood Urea Nitrogen 8 mg/dL (6-24); CO2 Carbon Dioxide 25 mmol/L (22-32); Calcium 8.7 mg/dL (8.6-10.3); Chloride 100 mmol/L (101-111); Creatinine, Serum 1.06 mg/dL (0.51-0.95); Glucose 90 mg/dL (70-100); Magnesium 2.2 mg/dL (1.9-2.7); Sodium 132 mmol/L (135-145); eGFR CKD-EPI 52.4 (>60)
[2024-03-30 05:46] LABS: Potassium, Whole Blood 5.7 mmol/L (3.4-4.5)
[2024-03-30] MEDS: Lactated Ringers 1000 ml BAG 500 ML IV ONE (12:11)
[2024-03-30] MEDS: cefTRIAXone 1 gm/50 mL D5W 1 GM/50 ML BAG IV SCH (12:11)
[2024-03-30] MEDS: SODIUM ZIRCONIUM CYCLOSILICATE 10 GM PACKET PO ONE (12:42)
[2024-03-30 13:41] LABS: Calcium 8.1 mg/dL (8.6-10.3); Creatinine, Serum 1.37 mg/dL (0.51-0.95); Potassium 5.5 mmol/L (3.5-5.0); eGFR CKD-EPI 38.6 (>60)
[2024-03-30] MEDS: Sodium Polystyrene ORAL.SUSP 15 GM/60 ML BTL PO ONE (15:56)
[2024-03-30] MEDS: Digoxin IV 0.5 MG/2 ML AMP (0.25 MG/ML) ONE ×2 (17:19→17:23)
[2024-03-30] MEDS: Digoxin IV 0.5 MG/2 ML AMP (0.25 MG/ML) IV SLOW PU ONE ×2 (17:19)
[2024-03-31 07:14] LABS: Hematocrit 40.6 % (35-45); Hemoglobin 13.9 g/dL (11.5-14.3); Mean Corpuscular Hemoglobin 31.6 pg (27-33); Mean Corpuscular Hgb Conc 34.3 g/dL (31-36); Mean Platelet Volume 7.8 fL (7.5-11.2); Platelet Count 299 10^3/uL (150-450); Red Blood Count 4.41 10^6/uL (3.63-4.92); Red Cell Distribution Width 14.7 % (12-17); White Blood Count 11.6 10^3/uL (3.8-11.8)
[2024-03-31 07:24] LABS: ABS Basophils 0.3 10^3/uL (0.0-0.1); ABS Eosinophils 1.2 10^3/uL (0.0-0.5); ABS Monocytes 2.7 10^3/uL (0.0-0.9); ABS Neutrophils 6.4 10^3/uL (1.5-7.6); ABS Nucleated RBC 0.01 10^3/ul; Eosinophil % 10.7 %; Lymphocyte % 8.6 %; Nucleated Red Blood Cells % 0.1 %/100WBC (0.0-0.8)
[2024-03-31 07:42] LABS: Anion Gap 9 mmol/L (2-16); Blood Urea Nitrogen 15 mg/dL (6-24); CO2 Carbon Dioxide 22 mmol/L (22-32); Calcium 8.2 mg/dL (8.6-10.3); Chloride 103 mmol/L (101-111); Creatinine, Serum 1.26 mg/dL (0.51-0.95); Glucose 76 mg/dL (70-100); Magnesium 2.4 mg/dL (1.9-2.7); Sodium 134 mmol/L (135-145); eGFR CKD-EPI 42.6 (>60)
[2024-03-31 10:53] LABS: Digoxin 3.9 ng/ml (0.8-2.0)
[2024-03-31] MEDS ORDERED: Ondansetron 4 mg VIAL 2 MG/ML 2 ml VIAL IV PRN (11:37)
[2024-03-31] MEDS: Metoprolol Tartrate 5 mg VIAL 5 ml VIAL (1 mg/ml) IV SCH (12:55)
[2024-04-01] MEDS: Acetaminophen IV 1 GM/100ML 1,000 MG/100 ML BAG IV PRN (00:55)
[2024-04-01] MEDS: Albumin Human 25% 25 GM/100 ML BTL IV ONE (03:48)
[2024-04-01 04:45] LABS: Hematocrit 36.6 % (35-45); Hemoglobin 12.6 g/dL (11.5-14.3); Mean Corpuscular Hemoglobin 31.6 pg (27-33); Mean Corpuscular Hgb Conc 34.3 g/dL (31-36); Platelet Count 283 10^3/uL (150-450); Red Blood Count 3.98 10^6/uL (3.63-4.92); Red Cell Distribution Width 14.7 % (12-17); White Blood Count 13.5 10^3/uL (3.8-11.8)
[2024-04-01 05:18] LABS: Calcium 7.7 mg/dL (8.6-10.3); Creatinine, Serum 1.52 mg/dL (0.51-0.95); Magnesium 2.4 mg/dL (1.9-2.7); Potassium 5.5 mmol/L (3.5-5.0)
[2024-04-01 05:25] LABS: Digoxin 2.8 ng/ml (0.8-2.0)
[2024-04-01 05:53] LABS: ABS Basophils 0.2 10^3/uL (0.0-0.1); ABS Eosinophils 1.3 10^3/uL (0.0-0.5); ABS Lymphocytes 2.1 10^3/uL (1.0-4.8); ABS Monocytes 3.6 10^3/uL (0.0-0.9); ABS Neutrophils 6.3 10^3/uL (1.5-7.6); ABS Nucleated RBC 0.03 10^3/ul; Anisocytosis 2+; Eosinophil % 9.3 %; Lymphocyte % 15.5 %; Nucleated Red Blood Cells % 0.2 %/100WBC (0.0-0.8)
[2024-04-01] MEDS: Ampicillin ADVAN 2 GM in NS 0.9% 100 ml BAG 100 ML IVPB SCH (05:58)
[2024-04-01] MEDS ORDERED: Vancomycin 1,000 MG in NS 0.9% 250 ml 250 ML IVPB SCH (09:00)
[2024-04-01 14:05] VITALS: BP 100/52
[2024-04-01] MEDS: Morphine ORAL CONCENTRATE 5 MG/0.25 ML ORAL.SYRIN SL PRN (14:23)
[2024-04-01] MEDS: Atropine 1% (ORAL/SL) 15 ML BTL SL PRN (14:27)
[2024-04-01] MEDS ORDERED: Digoxin IV 0.5 MG/2 ML AMP (0.25 MG/ML) IV SLOW PU SCH (17:00)
== END 2024-04-02 06:10 | disposition expired | DRG 871 ==
LOC: EDHOLD 16:07 → ED 16:07 → SUATTDRO 03-29 11:08 → MEDTELE 03-29 15:30
PROVIDERS: ADMIT Hospitalist; ATTEND Hospitalist